=== PATIENT | female | born 1980 | race Caucasian/White ===

== ENCOUNTER → 2019-09-29 | Outpatient (CLI) | payer MEDICARE ==
[~2019-09-29] MED LIST: AMBIEN10 MG PO; ATIVAN1 MG PO; BENADRYL25 M1 GT; CARAFATE1 GM/10 ML GT; CHOLESTYRAMINE L4 GM GT; FLONASE16 GM PO; FLUVOXAMINE; ISOSOURCE HN1500 ML JT; LACTULOSE20 GM/30 M GT; LEVOCETIRIZINE D5 MG PO; LIOTHYRONINE SO5 MCG PO; LYRICA25 MG PO; MICROGESTIN FE1 EAC1 GT; NORCO 10MG-325MG1 EA GT; NORCO 5-325 TA1 EACH PO; PANTOPRAZOLE SO40 MG GT; PHENERGAN GT; PHENERGAN PO; PRISTIQ ER100 MG PO; PROMETHAZINE HC25 M1 GT; REGLAN10 MG PO; RELPAX40 MG PO; SYNTHROID150 MCG PO; TRAZODONE HCL50 MG PO; TYLENOL WITH C1 EACH GT; ULTRAM 50MG50 MG PO; Z LITHIUM CARBON; Z.0.ATIVAN2 MG; Z.0.BENZONATATE200 M; Z.0.DEXILANT60 MG; Z.0.HYDROXYZINE HCL2; Z.0.LEVOCETIRIZINE D; Z.0.LYRICA50 MG; Z.0.PHENERGAN25 M1; Z.0.PROTONIX40 MG; Z.0.SYNTHROID137 MCG; Z.0.TOPAMAX100 MG; Z.0.TRAZODONE HCL150; Z.0.ZOFRAN4 MG; ZOFRAN ODT4 MG PO; [UNRECOGNIZED DRUG - OTHER]
--- NOTE | 2019-09-29 11:35 | Diagnostic Imaging Report ---
TECHNIQUE: 3 views of left and HISTORY: ^[id number] ^1113 ^PAIN IN LEFT HAND. COMPARISON: None. IMPRESSION: No acute displaced fracture or dislocation. Joint spaces are within normal limits. Soft tissues are grossly unremarkable. Signed by: Home Bashir MD on 09/29/2019 11:32 AM
== END ==
LOC: RAD 10:56
PROVIDERS: ATTEND Family Medicine
DX: M79.642 Pain in left hand (principal)